=== PATIENT | male | born 1950 | race Caucasian/White ===

== ENCOUNTER → 2017-02-07 | Outpatient (CLI) | payer MEDICARE | END | disposition short-term general hospital (02) | LOC: CLCARD 09:35 | DX: I48.0 Paroxysmal atrial fibrillation (principal); E11.9 Type 2 diabetes mellitus without complications; I10 Essential (primary) hypertension; G47.33 Obstructive sleep apnea (adult) (pediatric); R60.0 Localized edema; I49.1 Atrial premature depolarization; Z86.711 Personal history of pulmonary embolism; Z79.01 Long term (current) use of anticoagulants ==

== ENCOUNTER → 2017-02-08 | Outpatient (CLI) | payer MEDICARE | END | disposition short-term general hospital (02) | LOC: CLENT 09:35 | DX: B36.9 Superficial mycosis, unspecified (principal); E11.9 Type 2 diabetes mellitus without complications ==

== ENCOUNTER → 2017-02-22 | Outpatient (CLI) | payer MEDICARE | END | disposition short-term general hospital (02) | LOC: CLENT 10:25 | DX: B36.9 Superficial mycosis, unspecified (principal); G47.33 Obstructive sleep apnea (adult) (pediatric); H93.8X1 Other specified disorders of right ear ==